=== PATIENT | female | born 1985 | race Hispanic/Latino ===

== ENCOUNTER 2020-06-15 02:22 | Emergency (ER) | payer BC, SELFPAY ==
[2020-06-15] MEDS ORDERED: Fluorescein Opthalmic Strip ONE (03:38)
[2020-06-15] MEDS ORDERED: Proparacaine 0.5% Opth 15 ML BOT ONE (03:38)
== END 2020-06-15 04:20 | disposition home or self-care (01) ==
LOC: ERS 02:22
DX: S05.01XA Injury of conjunctiva and corneal abrasion without foreign body, right eye, initial encounter (principal); H10.31 Unspecified acute conjunctivitis, right eye
CPT/HCPCS: 99283